=== PATIENT | male | born 1990 ===

== ENCOUNTER 2018-05-08 01:49 | Emergency (ER) | payer BC, OTHER ==
[2018-05-08] MEDS ORDERED: NS 1,000 ML IV ONE (02:11)
[2018-05-08] MEDS ORDERED: HALOPERIDOL LACT 5 MG/ML INJ IVP ONE (02:11)
--- NOTE | 2018-05-08 02:16 | EDPHY ---
H & P Stated Complaint: states n/v since friday, now diarrhea, vomiting x1, diarrhea x5 Time Seen by Provider: 05/08/18 01:56 HPI/ROS: CHIEF COMPLAINT: Abdominal pain, nausea vomiting and diarrhea History by patient HISTORY OF PRESENT ILLNESS: 28-year-old man with no prior medical history presents complaining of 5 days of nausea, vomiting upper epigastric pain which he describes as a knot or something stuck in there and intermittent nonbloody diarrhea. Patient states he ate a sausage that he thinks he undercooked on Friday and he has had these symptoms since. He denies fever but says he feels hot and flushed times. He has been able to drink water but every time he eats symptoms recur. He feels better if he takes a hot shower and run by hot water on his abdomen and back. He tried taking some Pepto-Bismol with minimal relief. Says he was able to go to work on Friday, but not on Friday or Friday and returned to work today but tonight after trying to eat again he got worse. His last vomiting was this evening and last diarrhea was this afternoon. He has had similar pain symptoms in the past which he attributed to eating bad food. He uses marijuana daily. He denies any alcohol use. He has had hernia repairs and shoulder surgery in the past. REVIEW OF SYSTEMS: As in HPI, and all other systems reviewed and are negative Source: Patient - Personal History Current Tetanus Diphtheria and Acellular Pertussis (TDAP): Yes - Medical/Surgical History Hx Asthma: No Hx Chronic Respiratory Disease: No Hx Diabetes: No Hx Cardiac Disease: No Hx Renal Disease: No Hx Cirrhosis: No Hx Alcoholism: No Hx HIV/AIDS: No Hx Splenectomy or Spleen Trauma: No Other PMH: denies - Social History Smoking Status: Never smoked - Physical Exam Exam: General Appearance: Alert, nontoxic-appearing, poor eye contact. Eyes: Pupils equal and round, extraocular movements intact, no pallor or injection. Mouth: Mucous membranes moist. Pharynx clear Respiratory: Normal, effort, lungs are clear to auscultation. No wheezes, rales or rhonchi. Cardiovascular: Regular rate and rhythm. S1, S2, no murmurs, gallops or rubs appreciated Gastrointestinal: bowel sounds present, Abdomen is soft and nondistended, nontender, no masses Back: No CVA tenderness, no bony tenderness Neurological: Awake, alert and oriented x 3, no pronator drift, normal gait, no pronator drift Skin: Warm and dry, no rashes. Musculoskeletal: No deformities or tenderness. Extremities: full range of motion, no edema Psychiatric: Patient has normal affect, there is slight agitation. Constitutional: Initial Vital Signs Temperature (C) 36.9 C 05/08/18 01:59 Heart Rate 46 L 05/08/18 01:59 Respiratory Rate 15 05/08/18 01:59 Blood Pressure 145/82 H 05/08/18 01:59 O2 Sat (%) 95 05/08/18 01:59 O2 Delivery Mode Room Air Allergies/Adverse Reactions: acetaminophen [From Vicodin] Allergy (Verified 05/08/18 01:59) hydrocodone [From Vicodin] Allergy (Verified 05/08/18 01:59) morphine Allergy (Verified 05/08/18 01:59) Home Medications: Medication Instructions Recorded NK [No Known Home Meds] 05/08/18 Medical Decision Making ED Course/Re-evaluation: 28-year-old man presents with upper epigastric pain, nausea vomiting and diarrhea. His abdominal exam is unremarkable. Given the fact that he gets better with hot showers and is regular marijuana use I I considered hyperemesis cannabis syndrome. Labs were done to rule out electrolyte imbalances and we requested a stool sample to evaluate for infectious causes. Patient was given IV Haldol. On re-evaluation his nausea and abdominal pain were somewhat improved but he was feeling restless, agitated and wanting to leave consistent with an akisthetic reaction to Haldol. He was given additional IV Benadryl. On re-evaluation after 2nd dose of Benadryl the patient was feeling better and requesting to go home. - Data Points Laboratory Results: Laboratory Results 05/08/18 02:17 05/08/18 05/08/18 05/08/18 02:35 02:21 02:17 WBC RBC Hgb Hct MCV MCH MCHC RDW Plt Count MPV Neut % (Auto) Lymph % (Auto) [place] % (Auto) Eos % (Auto) Baso % (Auto) Nucleat RBC Rel Count Absolute Neuts (auto) Absolute Lymphs (auto) Absolute Monos (auto) Absolute Eos (auto) Absolute Basos (auto) Absolute Nucleated RBC Immature Gran % Immature Gran # POC Sodium 138 mEq/L mEq/L (135-145) POC Potassium 4.4 mEq/L mEq/L (3.3-5.0) POC Chloride 105.0 mEq/L mEq/L (97-110) POC Total CO2 28 mEq/L mEq/L (22-31) POC BUN 17 mg/dL mg/dL (7-23) POC Creatinine 1.0 mg/dL mg/dL (0.7-1.3) POC Glucose 117 mg/dL H mg/dL (70-100) POC Calcium 9.5 mg/dL mg/dL (8.5-10.4) POC Total Bilirubin 1.0 mg/dL mg/dL (0.1-1.4) POC GGT 12 IU/L IU/L (5-65) POC AST 31 IU/L IU/L (17-59) POC ALT 25 IU/L IU/L (21-72) POC Alk Phosphatase 56 IU/L IU/L (38-126) POC Total Protein 6.2 g/dL L g/dL (6.3-8.2) POC Albumin 3.9 g/dL g/dL (3.5-5.0) POC Amylase 35 IU/L IU/L (30-110) Lipase 85 IU/L IU/L (23-300) 05/08/18 02:17 WBC 6.91 10^3/uL 10^3/uL (3.80-9.50) RBC 4.51 10^6/uL 10^6/uL (4.40-6.38) Hgb 13.7 g/dL g/dL (13.7-17.5) Hct 40.5 % % (40.0-51.0) MCV 89.8 fL fL (81.5-99.8) MCH 30.4 pg pg (27.9-34.1) MCHC 33.8 g/dL g/dL (32.4-36.7) RDW 12.9 % % (11.5-15.2) Plt Count 149 10^3/uL L 10^3/uL (150-400) MPV 10.2 fL fL (8.7-11.7) Neut % (Auto) 53.3 % % (39.3-74.2) Lymph % (Auto) 30.2 % % (15.0-45.0) [place] % (Auto) 9.7 % % (4.5-13.0) Eos % (Auto) 6.2 % % (0.6-7.6) Baso % (Auto) 0.3 % % (0.3-1.7) Nucleat RBC Rel Count 0.0 % % (0.0-0.2) Absolute Neuts (auto) 3.68 10^3/uL 10^3/uL (1.70-6.50) Absolute Lymphs (auto) 2.09 10^3/uL 10^3/uL (1.00-3.00) Absolute Monos (auto) 0.67 10^3/uL 10^3/uL (0.30-0.80) Absolute Eos (auto) 0.43 10^3/uL H 10^3/uL (0.03-0.40) Absolute Basos (auto) 0.02 10^3/uL 10^3/uL (0.02-0.10) Absolute Nucleated RBC 0.00 10^3/uL 10^3/uL (0-0.01) Immature Gran % 0.3 % % (0.0-1.1) Immature Gran # 0.02 10^3/uL 10^3/uL (0.00-0.10) POC Sodium POC Potassium POC Chloride POC Total CO2 POC BUN POC Creatinine POC Glucose POC Calcium POC Total Bilirubin POC GGT POC AST POC ALT POC Alk Phosphatase POC Total Protein POC Albumin POC Amylase Lipase Medications Given: Discontinued Medications Diphenhydramine HCl (Benadryl Injection) 25 mg IVP EDNOW ONE Stop: 05/08/18 02:12 Last Admin: 05/08/18 02:20 Dose: 25 mg Diphenhydramine HCl (Benadryl Injection) 25 mg IVP EDNOW ONE Stop: 05/08/18 02:33 Last Admin: 05/08/18 02:34 Dose: 25 mg Diphenhydramine HCl (Benadryl Injection) 25 mg IVP EDNOW ONE Stop: 05/08/18 02:55 Last Admin: 05/08/18 02:57 Dose: 25 mg Haloperidol Lactate (Haldol Injection) 2.5 mg IVP EDNOW ONE Stop: 05/08/18 02:12 Last Admin: 05/08/18 02:20 Dose: 2.5 mg Sodium Chloride (Ns) 1,000 mls @ 0 mls/hr IV EDNOW ONE; Wide Open PRN Reason: Protocol Stop: 05/08/18 02:12 Last Admin: 05/08/18 02:20 Dose: 1,000 mls Point of Care Test Results: Chemistry 05/08/18 05/08/18 02:35 02:21 POC Sodium 138 mEq/L mEq/L (135-145) POC Potassium 4.4 mEq/L mEq/L (3.3-5.0) POC Chloride 105.0 mEq/L mEq/L (97-110) POC Total CO2 28 mEq/L mEq/L (22-31) POC BUN 17 mg/dL mg/dL (7-23) POC Creatinine 1.0 mg/dL mg/dL (0.7-1.3) POC Glucose 117 mg/dL H mg/dL (70-100) POC Calcium 9.5 mg/dL mg/dL (8.5-10.4) POC Total Bilirubin 1.0 mg/dL mg/dL (0.1-1.4) POC GGT 12 IU/L IU/L (5-65) POC AST 31 IU/L IU/L (17-59) POC ALT 25 IU/L IU/L (21-72) POC Alk Phosphatase 56 IU/L IU/L (38-126) POC Total Protein 6.2 g/dL L g/dL (6.3-8.2) POC Albumin 3.9 g/dL g/dL (3.5-5.0) POC Amylase 35 IU/L IU/L (30-110) Liver Function Tests LFT Collection Date 05/08/18 LFT Collection Time 02:17 Departure - Departure Disposition: Home, Routine, Self-Care Clinical Impression: Cannabis hyperemesis syndrome concurrent with and due to cannabis dependence Abdominal pain Qualifiers: Abdominal location: upper abdomen, unspecified Qualified Code(s): R10.10 - Upper abdominal pain, unspecified Medication reaction Qualifiers: Encounter type: initial encounter Qualified Code(s): T50.905A - Adverse effect of unspecified drugs, medicaments and biological substances, initial encounter Condition: Good Instructions: Acute Nausea and Vomiting (ED), Acute Abdominal Pain (ED) Additional Instructions: You were seen by Dr. Gilda Narvaez today. Your blood work was all normal today. I suspect your symptoms are due to hyperemesis cannabis syndrome. You need to stop smoking pot for at least a month to get out of your system. It is likely this can reoccur when he begins using marijuana again. You should consider yourself allergic to haloperidol (Haldol) given your akisthetic reaction to this drug. Return for any worsening or new concerns. [facility] [Outside] - As per Instructions
[2018-05-08 03:00] LABS: PLATELET COUNT 149 10^3/uL (150-400)
[2018-05-08 03:13] VITALS: BP 110/67
== END 2018-05-08 03:30 | disposition home or self-care (01) ==
LOC: CED 01:49
DX: R10.10 Upper abdominal pain, unspecified (principal); T50.905A Adverse effect of unspecified drugs, medicaments and biological substances, initial encounter; F12.288 Cannabis dependence with other cannabis-induced disorder; E86.9 Volume depletion, unspecified
CPT/HCPCS: 80048-PO; 80076-PO; 82150-PO; 96374; J1200; J1630